=== PATIENT | male | born 1955 | race Caucasian/White ===

== ENCOUNTER 2019-11-20 13:37 | Outpatient (CLI) | payer MEDICARE, OTHER, SELFPAY ==
--- NOTE | 2019-11-20 13:46 | CT_ITS ---
WS: [id number] CT CHEST WITHOUT INTRAVENOUS CONTRAST HISTORY: LUNG NODULE TECHNIQUE: Contiguous 5 mm axial imaging performed on the thorax. Coronal and sagittal reformats are submitted. All CT scans at [facility] use at least one of these dose optimization techniq ues: automated exposure control; mA and/or kV adjustment per patient size (includes targeted exams wh ere dose is matched to clinical indication); or iterative reconstruction. CONTRAST: Omnipaque 300; 95 mL IV. DLP: 841.96 mGy.cm COMPARISON: 06/06/2017 and 07/04/2018 Lungs and central airway: 3 mm nodules in the RIGHT lower lobe are present on the prior study from . No new or suspicious or enlarging nodules. No pneumonia. Pleura: Normal. No pleural effusion. Heart and pericardium: Normal size heart. No pericardial effusion. Mediastinum and jorge: Benign mediastinal and hilar lymph nodes. Vessels: Mild atherosclerosis aorta. Normal size pulmonary artery. Chest wall and lower neck: No soft tissue masses. Upper abdomen: Visualized liver and gallbladder are negative. No adrenal mass. Osseous structures: Very slight increase in the lumbar lordosis. Very minimal anterior wedging of T8. CT/CT chest wo con [id number] IMPRESSION: 1. Long-term stability of subcentimeter RIGHT lower lobe pulmonary nodules. No additional follow-up necessary. 2. No enlarging lymph nodes. 3. Mild atherosclerosis aorta.
== END 2019-11-20 13:38 | disposition home or self-care (01) ==
PROVIDERS: PCP Family Medicine; Visit Provider Family Medicine
DX: R91.8 Other nonspecific abnormal finding of lung field (principal); I70.0 Atherosclerosis of aorta
CPT/HCPCS: 71250

== ENCOUNTER 2020-08-18 14:13 | Emergency (ER) | payer MEDICARE, OTHER, SELFPAY ==
[2020-08-18 14:18] VITALS: BP 163/105; PULSE 67; RESP 18; TEMP 36.6; O2SAT 99; BMI 29.7
--- NOTE | 2020-08-18 14:32 | XR_ITS ---
WS: [id number] Left forearm, AP and lateral views, 08/18/2020 Clinical Data: trauma Comparison: None. Findings: No fracture or dislocations are seen. . The visualized left wrist and elbow show no obvious abnormali ties. There is soft tissue swelling on the dorsal portion of the forearm from the proximal third to the lef t wrist. XR/XR forearm LT 2V [id number] Impression: 1. Negative for fracture. 2. Soft tissue swelling on distal dorsal subcutaneous tissue of the left forear m.
--- NOTE | 2020-08-18 14:32 | W.ED.FALL ---
HPI - Fall General: Chief Complaint: Extremity Injury, Upper Stated Complaint: L ARM INJURY Time Seen by Provider: 08/18/20 14:24 Source: patient Mode of arrival: ambulatory Limitations: no limitations History of Present Illness: HPI Narrative: Patient is a nice 64-year-old male who presents to ED today for evaluation following a fall. Patient tells me he was on a tractor brush hogging a tree when the tree came back and struck him causing him to fall off of the tractor. Patient reports he did strike his head but no LOC. No headache. Has been normal since the event. He states he has some abrasions to right elbow and right chest but no pain here. His main concern is pain and swelling to left forearm. Tetanus unknown. MD complaint: fall Onset (ago): hour(s) Fall from: other (from tractor) Fall witnessed: no Place fall occurred: home Loss of consciousness: None Prolonged down time: no Symptoms prior to fall: none Location of injury: head and chest Location of injury - extremities: Left: forearm and Right: elbow Associated symptoms-after fall: Denies abdominal pain, chest pain, confusion, difficulty walking, headache(s), lightheadedness or neck pain Review of Systems Const: Denies: fever(s) or chills Eyes: Denies: change in vision, blurry vision, photophobia, floaters or seeing flashes ENMT: Denies: throat pain, odynophagia, ear discharge, nasal discharge, epistaxis or post nasal drip Card: Denies: chest pain or lightheadedness Resp: Denies: dyspnea, wheezing or hemoptysis GI: Denies: abdominal pain, nausea or vomiting : Denies: flank pain Musc: Reports: extremity pain (L forearm) and extremity swelling (L forearm); Denies: neck pain, back pain, joint pain or joint swelling Skin/Breast: Reports: other (abrasions to bilateral UEs, R lateral chest) Neuro: Denies: headache(s), numbness in extremities, weakness in extremities, sensory changes, difficulty walking, dizziness, confusion, Slurred speech present or difficulty communicating thoughts Physical Exam Const: COMMON NORMALS: no acute distress, average body habitus, patient oriented x3, no limitations, healthy appearing, alert and well nourished GENERAL APPEARANCE: cooperative ORIENTATION/CONSCIOUSNESS: Yes awake, Yes oriented to person, Yes oriented to place and Yes oriented to time HENMT: COMMON NORMALS: normocephalic and atraumatic HEAD & SCALP: normal to inspection, normocephalic and atraumatic HEAD IMAGES: 1. very small superficial abrasion Eye: COMMON NORMALS: Equal, round and reactive pupils present and EOMs intact bilaterally GENERAL EYE: appearance normal, both eyes and all related structures PUPIL: Yes Equal, round and reactive pupils present Neck/C-Spine: COMMON NORMALS: full ROM CERVICAL SPINE: Yes cervical ROM normal, No pain with cervical ROM, No Cervical spine tenderness and No Paracervical muscle tenderness Chest: COMMONS NORMALS: normal palpation of entire chest wall OTHER: superficial abrasion to R posterior/lateral chest wall; no tenderness/crepitus noted Resp: COMMON NORMALS: normal respiratory effort and clear to auscultation bilaterally AUSCULTATION: clear to auscultation bilaterally Cardio: COMMON NORMALS: regular rate and regular rhythm RATE: regular rate RHYTHM: regular rhythm GI: COMMON NORMALS: Normal to inspection, nondistended, normoactive bowel sounds present, Soft to palpation, non-tender, No hepatosplenomegaly present and no masses PALPATION: Yes Soft to palpation and Yes No hepatosplenomegaly present Back/Pelvis: COMMON NORMALS: thoracic and lumbar spine normal to inspection, no thoracic nor lumbar tenderness and thoraco-lumbar ROM normal Extremity: NARRATIVE EXTREMITY EXAM: superficial abrasions to R elbow-no tenderness/full ROM; skin tear to dorsal L forearm with significant swelling; radial pulse intact; sensory normal; brisk cap refill; pain not out of proportion to exam; can wiggle fingers without severe pain Neuro: TRACY COMA SCALE: document GCS findings [place] coma scale eye opening: Spontaneous [place] coma scale verbal response: Orientated [place] coma scale motor response: Obey commands [place] coma scale total score: 15 COMMON NORMALS: patient oriented x3, CN's II-XII intact bilaterally and gait normal SENSORIUM/ORIENTATION: Yes alert, Yes oriented to person, Yes oriented to place and Yes oriented to time Skin: NARRATIVE SKIN EXAM: see extremity assessment Course Vital Signs: Vital signs: Vital Signs Temperature 97.9 F 08/18/20 14:18 Pulse Rate 74 08/18/20 14:37 Respiratory Rate 18 08/18/20 14:45 Blood Pressure 153/102 08/18/20 14:36 Pulse Oximetry 97 03/03/21 14:36 MDM - Fall MDM Narrative: Medical decision making narrative: Patient has no tenderness anywhere apart from his left forearm. He has a skin abrasion/tear that is non-repairable and will have to heal by secondary intent. Will cover with abx. XR negative. No compartment syndrome. Tetanus updated. Patient instructed on wet to dry dressings. Return to ED precautions given. Imaging Data^: XR L forearm: Radiologist's impression: [address] [address] XRay Report Signed Patient: Nicanor Darling Unit #: [id number] : 1955 Age/Sex: 64 / M ADM Date: 08/18/20 Loc: ER Room/Bed: Attending Dr: Ordering Provider/Ordering MD: Sherine Askew Date of Service: 08/18/20 Procedure(s): XR forearm LT 2V 39335 Accession Number(s): [id number] Report Number: [id number] WS: [id number] Left forearm, AP and lateral views, 08/18/2020 Clinical Data: trauma Comparison: None. Findings: No fracture or dislocations are seen. . The visualized left wrist and elbow show no obvious abnormalities. There is soft tissue swelling on the dorsal portion of the forearm from the proximal third to the left wrist. XR/XR forearm LT 2V [id number] Impression: 1. Negative for fracture. 2. Soft tissue swelling on distal dorsal subcutaneous tissue of the left forearm. Dictated By: Ara Villegas MD Signed By: Ara Villegas MD Signed Date/Time: 08/18/201457 DD/ 56 Discharge Plan Discharge Patient Disposition: Home Clinical Impression: Fall Qualifiers: Encounter type: initial encounter Qualified Code(s): W19.XXXA - Unspecified fall, initial encounter Contusion of forearm, left Qualifiers: Encounter type: initial encounter Qualified Code(s): S50.12XA - Contusion of left forearm, initial encounter Skin tear of left forearm without complication Qualifiers: Encounter type: initial encounter Qualified Code(s): S51.812A - Laceration without foreign body of left forearm, initial encounter Condition: Stable Prescriptions: New hydrocodone-acetaminophen 5-325 mg tablet 1 tab PO Q6H PRN (Reason: pain) Qty: 14 RF: 0 Keflex 500 mg capsule 500 mg PO Q6H 7 Days Qty: 28 RF: 0 No Action Tylenol Extra Strength 500 mg Tablet 1,000 mg PO DAILY PRN (Reason: Pain) RF: 0 Aleve 220 mg Tablet 440 mg PO DAILY PRN (Reason: Pain) RF: 0 losartan 25 mg tablet 25 mg PO QAM RF: 0 Advil 200 mg Tablet 400 mg PO DAILY PRN (Reason: Pain) RF: 0 Discharge Orders: Discharge ED (Routine); Ordered 08/18/20 Ordered By: Sherine Askew Referrals: Jaycob Mckeon MD [Primary Care Provider] - Patient Instructions: Contusion in Adults (ED), Opioid Safety Activity Restrictions/Additional Instructions: [facility] is committed to fighting the nationwide opiate epidemic. We are providing ALL patients with information regarding opiate safety. If you received opiate pain medication during your stay or if you received a prescription for opiate pain medication-please review this handout. If not, you may disregard. Thank you. Keep wounds clean with warm soap and water. You have been instructed on wet-to-dry dressings. Monitor for signs of infection such as redness, swelling, drainage, increased pain. Monitor the swelling in your left forearm. You need to return to the emergency department for severe pain, severe pain with movement of your fingers, numbness/tingling/loss of sensation, paleness or coldness to your extremity, or any other concerns you may have. Coding Level of Care Code ED Traffic Control Supervisor for Jose Fwjerri Exam Comprehensive
[2020-08-18 14:36] VITALS: BP 153/102; PULSE 71; RESP 18; O2SAT 97
[2020-08-18 14:37] VITALS: PULSE 74
--- NOTE | 2020-08-18 14:41 | PC.PHAR ---
pt states he takes losartan 25mg po qam-pt states he alternates threw the day by taking 2tabs of aleve,advil,tylenol-pt states he has only taken his losartan today
[2020-08-18 14:45] VITALS: RESP 18
[2020-08-18] MEDS: morphine 4 mg/mL SDV 1 mL IM (14:45)
[2020-08-18] MEDS: tetanus-diphtheria tox (adult) 0.5 mL SDV IM (14:46)
[2020-08-18 15:37] VITALS: BP 132/93; PULSE 61; RESP 18; TEMP 37.1; O2SAT 96
== END 2020-08-18 15:44 | disposition home or self-care (01) ==
PROVIDERS: Emergency Provider Physician Assistant; PCP Family Medicine
DX: S50.12XA Contusion of left forearm, initial encounter (principal); S51.812A Laceration without foreign body of left forearm, initial encounter; W20.8XXA Other cause of strike by thrown, projected or falling object, initial encounter; Z23 Encounter for immunization
CPT/HCPCS: 73090; 90471; 90714; 96372; 99283; J2270

== ENCOUNTER → 2021-12-13 11:26 | Outpatient (BNVA) | payer MEDICARE, OTHER, SELFPAY | PROVIDERS: PCP Family Medicine; Visit Provider Family Medicine | DX: Z00.00 Encounter for general adult medical examination without abnormal findings (principal); R35.0 Frequency of micturition; E78.5 Hyperlipidemia, unspecified; I10 Essential (primary) hypertension | CPT/HCPCS: 80053; 80061; 84153; 85025 ==

== ENCOUNTER → 2021-12-28 08:57 | Outpatient (BNVA) | payer MEDICARE, OTHER, SELFPAY | PROVIDERS: PCP Family Medicine; Visit Provider Nurse Practitioner Family | DX: M67.40 Ganglion, unspecified site (principal) | CPT/HCPCS: 99214 ==

== ENCOUNTER 2022-01-05 11:28 | Day surgery (SDC) | payer MEDICARE, OTHER, SELFPAY ==
[2022-01-04 10:34] VITALS: BMI 28.3
[2022-01-05] VITALS (9 sets, daily range): BP systolic 130–170; BP diastolic 87–100; PULSE 58–82; RESP 14–21; TEMP 36.2–36.6; O2SAT 94–100
--- NOTE | 2022-01-05 12:16 | P.HP_ITS ---
Same Day Surgery H&P Indication for Procedure/HPI DATE OF PROCEDURE: January 05, 2022 CHIEF COMPLAINT/INDICATIONFOR SURGICAL PROCEDURE: Mass left elbow PREOP DIAGNOSIS: Mass left elbow PLANNED PROCEDURE: Operation Date: 01/05/22 13:20 Proposed Procedures p mass excision left elbow/ 52124,M67.40(Left) - Julio Trevino MD Nicanor is a 66-year-old male who has had a mass on his left elbow for 5 years. He denies any particular trauma. He states a year ago a physician attempted aspirated unsuccessfully. He states associated with pain when he bumps it. He describes occasional feelings of numbness radiate down his arm Medications/Allergies* Home Medications Medication Instructions Recorded Confirmed Type acetaminophen 500 mg tablet 1,000 mg PO DAILY PRN 08/18/20 01/05/22 History (Tylenol Extra Strength) losartan 25 mg tablet 25 mg PO QAM 08/18/20 01/05/22 History Allergies/Adverse Reactions Allergy/AdvReac Type Severity Reaction Status Date / Time No Known Allergies Allergy Verified 12/28/21 09:28 Pertinent Exam Findings alert, oriented x 3, clear to auscultation bilaterally, regular rate & rhythm and procedure specific exam findings Nicanor has full motion left elbow. Over the dorsal elbow just distal to the tip of the olecranon on the radial aspect there is a palpable mass approximately 2- 1/2 cm in diameter. It is freely mobile beneath the skin and over the deep tissues. He has a negative Tinel's behind the medial epicondyle and over the carpal tunnel He has full motor function in his digits and his sensation is intact to light touch Recommendations Surgery/Procedure today Other Plans: I suspect this represents a epidermal inclusion cyst or a foreign body reaction. Is not appear fluid-filled consistent with a bursa. It is a source of pain for him. I agree with excision. We will proceed today as scheduled. Coding Level of Care Code Acute Care Transition Manager for Jose Bellamy
[2022-01-05] MEDS: sodium chloride 0.9% 1,000 ML 30 ML IV (12:23)
--- NOTE | 2022-01-05 12:41 | ANES.PREANE2 ---
Pre-Anesthetic Assessment Height/Weight: Height 1.85 m Weight 97.522 kg Pulse Resp BP Pulse Ox 58 L 14 162/100 97 01/05/22 11:48 01/05/22 11:48 01/05/22 11:48 01/05/22 11:48 Preop Diagnosis: Mass left elbow Operation Date: 01/05/22 13:20 Proposed Procedures p mass excision left elbow/ 83970,M67.40(Left) - Julio Trevino MD Familial anesthetic complications: none Was Beta Chen taken within 24 hours: N/A Was Clonidine taken within 24 hours: N/A Last intake: Intake Last Liquid Date 01/05/22 Last Liquid Time 11:00 Last Solid Date 01/04/22 Last Solid Time 17:30 Social No alcohol and No tobacco Exam alert, oriented x 3, clear to auscultation bilaterally and regular rate & rhythm Airway Submandibular: within normal limits Cervical ROM: within normal limits Mallampati: Class II Dentition: full CV/HEM Hypertension Anesthetic Plan ASA status: 2 Anesthesia: General Medications/Allergies Home Medications Medication Instructions Recorded Confirmed Last Taken Type acetaminophen 500 mg tablet 1,000 mg PO DAILY PRN 08/18/20 01/05/22 01/04/22 18:00 History (Tylenol Extra Strength) losartan 25 mg tablet 25 mg PO QAM 08/18/20 01/05/22 01/04/22 05:30 History hydrocodone 5 mg-acetaminophen 325 1 tab PO Q4H #10 tab 01/05/22 Unknown Rx mg tablet Allergies Allergy/AdvReac Type Severity Reaction Status Date / Time No Known Allergies Allergy Verified 12/28/21 09:28 Current Medications Generic Name Dose Route Start Last Admin Trade Name Freq PRN Reason Stop Dose Admin Sodium Chloride 1,000 mls @ 30 mls/hr 01/05/22 11:45 01/05/22 12:23 Sodium Chloride 0.9% IV 01/06/22 11:44 30 mls/hr .Q24H JIMMY Administration Data Anesthesia Cardiac Studies: No Data to Display
[2022-01-05] MEDS: ceFAZolin 2,000 MG in sodium chloride 0.9% (plus) 50 ML 100 MG IV (13:21)
--- NOTE | 2022-01-05 14:14 | PM.OP ---
Operative Report Date of procedure: January 05, 2022 Pre-op diagnosis: Preop Diagnosis Mass left elbow Pathology: other Pathology: A 1 x 2 cm solid flesh-colored mass was sent to pathology Surgeon: Julio Trevino Anesthesia: General Estimated blood loss (mL): 5 Tourniquet time (min): 17 Findings: The patient had a 1 x 2 cm solid fleshy mass adherent to the periosteum and surrounding fat over the proximal dorsal radial elbow Condition: stable Procedure: Patient was taken to the operating room and given a general anesthesia. He was prepped and draped in the supine position with his left arm flexed across his body. The tourniquet was inflated to 250 mmHg. A transverse incision was made 2 cm long with a scalpel blade dissection was carried down through subcutaneous fat revealing the dorsal aspect of the mass. Utilizing blunt scissors dissection was accomplished circumferentially around the mass finally elevating it off of the deep fascia and periosteum of the proximal radial aspect of the ulnar shaft. The mass was sent for pathology. The wound was irrigated with saline. The tourniquet was deflated deep tissues were closed with a 2 oh deep Vicryl. The skin was closed with interrupted 3-0 Prolene. Xeroflo gauze, 4 x 4's, web roll and an Anup wrap from hand to elbow was applied. The patient was placed in a sling. He was extubated taken to recovery in stable condition.
[2022-01-05] MEDS: HYDROcodone-acetaminophen 5-325 mg Tablet 1 TAB PO (14:49)
--- NOTE | 2022-01-05 15:52 | SUR.PHASEII ---
1540 pt states that pain rx effective and wanting to go home
--- NOTE | 2022-01-05 16:19 | ANE.PACU2 ---
Inpatient post-anesthesia follow up: Airway intact: Yes Vital signs: Temperature 98 F Pulse Rate 61 Respiratory Rate 18 Blood Pressure 139/93 Pulse Oximetry 98 Oxygen Delivery Me thod Room Air Oxygen Flow Rate 8 Fraction of Inspir ed Oxygen Hydration adequate: Yes Nausea and vomiting: No Pain level: 2 Mental status: Baseline
== END 2022-01-05 15:45 | disposition home or self-care (01) ==
PROVIDERS: PCP Family Medicine; Visit Provider Orthopaedic Surgery
PROC: (CPT 13120; principal; 2022-01-05 13:10)
DX: R22.32 Localized swelling, mass and lump, left upper limb (principal); I10 Essential (primary) hypertension
CPT/HCPCS: 13120; 24076; 88307; J1100; J2405; J2704; J3010; J3490; J7030

== ENCOUNTER → 2022-01-10 08:50 | Outpatient (BNVA) | payer MEDICARE, OTHER, SELFPAY | PROVIDERS: PCP Family Medicine; Visit Provider Nurse Practitioner Family | DX: Z98.890 Other specified postprocedural states (principal) | CPT/HCPCS: 99024 ==

== ENCOUNTER → 2023-02-27 15:00 | Outpatient (BNVA) | payer MEDICARE, OTHER, SELFPAY | PROVIDERS: PCP Family Medicine; Visit Provider Family Medicine | DX: E78.5 Hyperlipidemia, unspecified; R35.0 Frequency of micturition; F17.200 Nicotine dependence, unspecified, uncomplicated | CPT/HCPCS: 80053; 80061; 84153 ==

== ENCOUNTER 2023-03-07 07:25 | Outpatient (CLI) | payer MEDICARE, OTHER, SELFPAY ==
--- NOTE | 2023-03-07 07:45 | CT_ITS ---
WS: [id number] LDCT LUNG CANCER SCREENING TECHNIQUE: Noncontrast CT of the chest with coronal and sagittal reformatted images. CLINICAL INFORMATION: smoker COMPARISON: CT chest 11/20/2019 DLP: 84.90 mGy.cm DIvol: Mean CTDIvol: 1.80 (mGy) All CT scans at [facility] use at least one of these dose optimization techniques: automat ed exposure control; mA and/or kV adjustment per patient size (includes targeted exams where dose is matched to clinical indication); or iterative reconstruction. FINDINGS: Stable 4 mm RIGHT lower lobe pulmonary nodule unchanged. No other suspicious pulmonary parenchymal op acities. Aortic calcification. Coronary calcification. No mediastinal or hilar lymphadenopathy. No axillary ly mphadenopathy. Small RIGHT adrenal adenoma measuring 17 mm. Tiny esophageal hiatal hernia. IMPRESSION: CT/CT lung screening [id number] LUNG-RADS: 2-Benign Appearance or Behavior FOLLOW UP: 12 Month: Continue annual screening with LDCT
== END 2023-03-07 07:26 | disposition home or self-care (01) ==
LOC: RAD 07:26
PROVIDERS: PCP Family Medicine; Visit Provider Family Medicine
DX: Z12.2 Encounter for screening for malignant neoplasm of respiratory organs (principal); F17.200 Nicotine dependence, unspecified, uncomplicated
CPT/HCPCS: 71271

== ENCOUNTER → 2024-07-16 08:41 | Outpatient (BNVA) | payer MEDICARE, OTHER, SELFPAY | PROVIDERS: PCP Family Medicine; Visit Provider Family Medicine | DX: Z00.00 Encounter for general adult medical examination without abnormal findings (principal); R07.9 Chest pain, unspecified; R35.1 Nocturia | CPT/HCPCS: 80053; 80061; 84153; 84484; 85025; 85379 ==

== ENCOUNTER 2024-07-21 15:30 | Outpatient (CLI) | payer MEDICARE, OTHER, SELFPAY ==
--- NOTE | 2024-07-21 15:45 | CT_ITS ---
WS: [id number] LDCT LUNG CANCER SCREENING HISTORY: screening TECHNIQUE: Axial imaging performed from the apices to 1 cm below the costophrenic angles. Coronal and sagittal reformats are submitted with axial MIP series. All CT scans at [facility] use at least one of these dose optimization techniques: automated exposure control; mA and/or kV adjustment per patient size (includes targeted exams where dose is matched to clinical indication); or iterative reconstruction. DLP: 85.41 mGy.cm DIvol: Mean CTDIvol: 1.80 (mGy) COMPARISON: 03/07/2023, 11/20/2019 Diagnostic quality: Satisfactory Lungs: Reidentified is the 4 mm noncalcified nodule in the superior segment RIGHT lower lobe which has been stable since 2019. There are a few RIGHT lung calcified granulomata. No new mass or enlarging mass or nodule. No pneumonia. No endobronchial lesions. Heart: Normal size heart with no pericardial effusion.. Other findings: Stable nonpathological mediastinal and hilar lymph nodes. Mild atherosclerosis aorta. Normal size pulmonary artery. Small hiatal hernia. 1.2 cm RIGHT adrenal adenoma. Mild increase in thoracic kyphosis. CT/CT lung screening [id number] IMPRESSION: LUNG-RADS: 2-Benign Appearance or Behavior FOLLOW UP: 12 Month: Continue annual screening with LDCT OTHER FINDINGS (S MODIFIER): None.
== END 2024-07-21 15:31 | disposition home or self-care (01) ==
PROVIDERS: PCP Family Medicine; Visit Provider Family Medicine
DX: Z12.2 Encounter for screening for malignant neoplasm of respiratory organs (principal); I50.20 Unspecified systolic (congestive) heart failure; F17.200 Nicotine dependence, unspecified, uncomplicated; R91.1 Solitary pulmonary nodule; J98.4 Other disorders of lung; R59.0 Localized enlarged lymph nodes; I70.0 Atherosclerosis of aorta; K44.9 Diaphragmatic hernia without obstruction or gangrene; D35.01 Benign neoplasm of right adrenal gland; M40.294 Other kyphosis, thoracic region
CPT/HCPCS: 71271; 80053; 80061; 84153; 84484; 85025; 85379

== ENCOUNTER 2024-07-25 07:55 | Outpatient (CLI) | payer MEDICARE, OTHER, SELFPAY ==
--- NOTE | 2024-07-25 | ECG_ITS ---
[facility] Test Date: 2024-07-25 Pat Name: Ncianor Darling Department: Room: Gender: Male Supervisor Hard Candy: : 1955 Requested By: Jaycob Roy Order Number: [id number] Chet MD: Josh Zarate M.D. Interpretive Statements EXERCISE MIBI EXERCISE DATA: The patient was exercised by Efrain protocol. Baseline heart rate was 66 beats per minute. Baseline blood pressure was 161/107 millimeters of mercury. Maximal predicted heart rate was 151 beats per minute. Maximum heart rate achieved was 151 which was 100% of the maximum predicted heart rate. Maximum blood pressure was 199/101 millimeters of mercury. Total exercise time was 5 minutes and 59 seconds. Maximum METs achieved was 7. The reason for ending the test was maximal effort achieved. The patient complained of shortness of breath during the stress test, which then resolved at the end of the test. ELECTROCARDIOGRAM: BASELINE: Showed sinus rhythm, normal axis, no significant ST-T changes at the baseline noted. [] EXERCISE: At the peak exercise level, [] No significant ST-T changes suggestive of ischemia noted. [] RECOVERY: During the recovery period, heart rate dropped appropriately. No significant ST-T changes in the recovery suggestive of ischemia noted. [] CONCLUSION: 1. Exercise capacity is fair 2. Heart rate response was appropriate 3. Blood pressure response was appropriate 4. Symptoms not suggestive of ischemia. 5. Electrocardiogram portion of the stress test was not suggestive of ischemia. 6. Nuclear scan will be documented separately. Electronically Signed On 08-10-2024 12:48:45 BUDGET REPORT CLERK by Josh Zarate M.D. [id number] [id number]
[2024-07-25 08:15] VITALS: BMI 28.3
--- NOTE | 2024-07-25 08:15 | NMCV_ITS ---
NM fidel perf SPECT r/s* [id number] Nicanor Darling Age: 68 Gender: M : 1955 Exam Date: 07/25/2024 09:55 Ordering Phys: Jaycob Mckeon MD Technologist: FRANKLIN Fajardo Exam Location: [facility] Indications: cp STRESS TEST Please see separate stress test report in [facility] for full findings IMAGE PROTOCOL Rest/Stress 1 Exercise Day Radiopharmaceutical Dose (mCi) Administration Site Administered by Rest: Tc-99m 10.6 IV Minna Humphries, COMPENSATION SUPERVISOR Sestamibi Stress:Tc-99m 32.6 IV Minna Humphries, COMPENSATION SUPERVISOR Sestamibi Rest: 25-Jul-2024 60 Discovery 630 Stress: 25-Jul-2024 15 Discovery 630 Radiopharmaceutical was injected at 98 % maximum heart rate. Images obtained in supine and prone position. SPECT RESULTS Technical Quality: Good Raw Data Analysis: Normal Image Corrections: No attenuation or motion correction applied Summed Stress Score: 5 Summed Rest Score: 0 Summed Difference Score: 5 PERFUSION FINDINGS There is a reduced radiotracer uptake in the inferior and inferolateral milan. This resolves on prone imaging. This is consistent with attenuation artifact. No significant ischemia FUNCTIONAL RESULTS (calculated via Gated SPECT) Stress Image LV EF (%): 75 Stress EDV (mL):81 TID: 0.87 Stress ESV (mL):20 FUNCTIONAL FINDINGS: There is normal left ventricular systolic function. IMPRESSIONS 1. Attenuation artifact seen in the inferior and inferolateral milan. No significant ischemia seen 2. LV systolic function is normal Josh Zarate MD (Electronically Signed) Final Date: 25 July 2024 16:01 S
[2024-07-25 10:43] VITALS: BP 146/97; PULSE 91
== END 2024-07-25 07:56 | disposition home or self-care (01) ==
LOC: CDL 07:56
PROVIDERS: PCP Family Medicine; Visit Provider Family Medicine
DX: R07.9 Chest pain, unspecified (principal)
CPT/HCPCS: 36415; 78452; 93017; A9500

== ENCOUNTER 2025-04-03 06:56 | Outpatient (CLI) | payer MEDICARE, OTHER, SELFPAY ==
--- NOTE | 2025-04-03 07:18 | MR_ITS ---
WS: [id number] MRI HEAD WITH CONTRAST WITH ATTENTION TO THE INTERNAL AUDITORY CANALS TECHNIQUE: Sagittal T1, T2 axial, T2 axial flair, axial susceptibility weighted imaging, axial diffusion weighted images, and coronal T2 images were obtained. Pre and post T1 axial and post T1 coronal images. ADC and FSPGR images. Post gadolinium images with attention to the internal auditory canals. Axial fiesta imaging. CLINICAL INFORMATION: BILATERAL HEARING LOSS COMPARISON: None. FINDINGS: Proximal 7th and 8th cranial nerves are normal in appearance. No evidence of enhancing IAC or CP angle mass. Normal trigeminal nerve root entry zones. Mild mucosal thickening in the paranasal sinuses. Mastoid air cells are well aerated No evidence of restricted diffusion to suggest acute ischemia. Mild small vessel changes. Mild parenchymal volume loss. Normal posterior fossa. Normal vascular flow voids at the skull base. No extra-axial fluid collections. No hemosiderin on the susceptibly weighted images. Normal optic chiasm and pituitary infundibulum. No abnormal enhancement. Normal dural venous sinuses. MR/MR iac's wo/w con* [id number] IMPRESSION: 1. No restricted diffusion to suggest acute ischemia. 2. Mild small vessel changes with mild parenchymal volume loss. 3. Proximal 7th and 8th cranial nerves are normal. Normal trigeminal nerve macarena t entry zones. 4. No evidence of enhancing IAC or CP angle mass. 5. Mild mucosal thickening in the paranasal sinuses. Mastoid air cells are wel l aerated. Normal posterior nasopharynx.
[2025-04-03] MEDS: gadobenate dimeglumine 20 mL vial IV (08:04)
== END 2025-04-03 06:57 | disposition home or self-care (01) ==
LOC: RAD 06:57
PROVIDERS: PCP Family Medicine; Visit Provider Specialist
DX: H90.3 Sensorineural hearing loss, bilateral (principal); H93.12 Tinnitus, left ear; J34.89 Other specified disorders of nose and nasal sinuses
CPT/HCPCS: 70553